=== PATIENT | male | born 1975 | race Caucasian/White ===

== ENCOUNTER 2016-09-29 23:51 | Emergency (ER) | payer SELFPAY ==
--- NOTE | 2016-10-03 19:13 | ER ---
ADMIT: 09/29/2016 RM/LOC: ER [facility] MR#: [id number] [id number] JARAD LEE M [address] [place] [address] Emergency Room Report SEX: M AGE: 40 : 1975 DATE: 09/29/2016 HISTORY OF PRESENT ILLNESS: The patient is a 40-year-old male with no past medical history, came to the ER with chief complaint of right medial malleolus ankle pain. The patient states yesterday, he hit the right ankle at the same place to the pull slope, but after that, he was walking without difficulty and the gait was not antalgic and he was in no distress and since this morning, he noticed there is mild pain which became moderate in the right medial malleolus area. The patient denies any other trauma or fever or chills. PHYSICAL EXAMINATION: GENERAL: The patient was in no distress. Gait was normal. HEAD: Noncontributory and negative. NECK: Noncontributory and negative. CHEST: Noncontributory and negative. ABDOMEN: Noncontributory and negative. MUSCULOSKELETAL: On the right medial malleolus, there is mild tenderness without any erythema or color change. The rest of the examination is normal and the patient had normal neurovascular exam and compartments are soft. IMAGING: X-ray of the right ankle did not show any fracture or dislocations acutely. The patient is stable to be discharged to home with primary diagnosis of right ankle contusion and advised to use Motrin or Tylenol for pain control. Use the Stanley wrap and elevation, cold compress for the first 24 hours. The patient to be followed up by the primary doctor. The patient acknowledged he understood and agreed with it and was discharged to home. Bruce Au MD/ yunior JOB #: [id number] CC: Zaid Mello MD, Attending Physician
== END 2016-09-30 00:46 | disposition home or self-care (01) ==
LOC: ER 23:51
DX: S90.01XA Contusion of right ankle, initial encounter (principal); W22.8XXA Striking against or struck by other objects, initial encounter